=== PATIENT | male | born 2005 | race Caucasian/White ===

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

== ENCOUNTER 2024-07-19 19:03 | Emergency (ER) | payer MEDICAID, SELFPAY ==
[2024-07-19 19:04] VITALS: BP 190/115; PULSE 111; RESP 18; TEMP 36.6; O2SAT 97
--- NOTE | 2024-07-19 19:15 | RAD_ITS ---
EXAM: XR LEFT KNEE COMPLETE, 4 OR MORE VIEWS CLINICAL INDICATION: fall pain. TECHNIQUE: Four or more views of the left knee. COMPARISON: No relevant prior studies available. FINDINGS: BONES/JOINTS: Knee joint effusion. No acute fracture. No subluxation. Normal alignment. No sclerotic or destructive changes observed. SOFT TISSUES: Anterior soft tissue swelling. No radiopaque foreign body. RAD/Knee 4 or More Views IMPRESSION: 1. Anterior soft tissue swelling. 2. Knee joint effusion. No acute fracture or dislocation. Electronically Signed: Ifeanyi aZfar DO at 20:12 EST ,
--- NOTE | 2024-07-19 21:29 | EX.ED.DYSGE1 ---
HPI History of Present Illness Chief Complaint: Lower Extremity Injury Narrative Narrative: Chief complaint and HPI: Left knee pain. 18-year-old male presents for evaluation of left knee pain. Onset of left knee pain yesterday after a mechanical fall. Patient states that he tripped down steps. Did not hit his head. No LOC. States that he landed on his back and slid down the steps. Had no direct fall on his knee. Able to ambulate. Denies numbness or tingling. Denies pain elsewhere. Review of systems: See HPI Medications: As listed on the chart Allergies: As listed on the chart PFSH: Per chart Vital signs: As listed on the chart. Reviewed. Physical exam: Gen: A&O x3, NAD Head: Normocephalic, atraumatic Eyes: No sclera icterus, conjunctiva clear ENT: Moist mucous membranes Neck: Trachea midline, full range of motion CV: Regular Resp: Nonlabored respiration Musc: Full ROM of all extremities including the left lower extremity, no deformity, no instability of the left knee, no popping/clicking, no crepitus, not erythematous or warm-no signs of cellulitis, mild swelling, mildly tender to palpation diffuse, no meniscal tenderness, no ecchymosis, compartments soft, DP/PT pulse +2 Skin: Warm, dry Neuro: Alert, oriented, grossly intact, sensation intact Psych: Cooperative, appropriate mood and affect [facility] Medical History (Updated 07/19/24 @ 21:[address] Juanpablo العراقي DO) Depression ADHD Home Medications ?Medication ?Instructions ?Recorded ?Last Taken ?Type dexmethylphenidate 10 mg tablet 30 mg PO DAILY 11/04/23 Unknown History (Focalin) dexmethylphenidate 30 mg 30 mg PO 1200 11/04/23 Unknown History capsule,extended release [id number] (Focalin XR) albuterol sulfate 90 mcg/actuation 2 puff inhalation Q4H PRN PRN 07/19/24 Unknown History aerosol inhaler wheezing Allergy/AdvReac Type Severity Reaction Status Date / Time Penicillins Allergy PT UNSURE Verified 07/19/24 19:04 OF REACTION pineapple Allergy Hives Verified 07/19/24 19:04 Social History Smoking Status: Never smoker EXAM Physical Exam Const Vital Signs: 07/19/24 19:04 Temperature 97.9 F Temperature Source Temporal Pulse Rate 111 H Respiratory Rate 18 Blood Pressure 190/115 H Blood Pressure Mean 140 Pulse Ox 97 Oxygen Delivery Method Room Air MDM MDM MDM Narrative Medical decision making narrative: 18-year-old male presents for evaluation of left knee pain. Differential diagnosis includes but is not limited to left knee sprain, contusion, fracture. Protocol knee x-ray was ordered in triage. X-ray had resulted by the time I saw the patient. X-ray of the left knee was interpreted by me, ED physician as well as radiology. No fracture dislocation. Patient's symptoms are likely secondary to left knee sprain. Was educated on [id number] brace as needed for pain. Tylenol Motrin as needed for pain. Follow-up with PCP and orthopedics as needed. Return precautions explained. He confirmed understand the plan. Impression: 1. Left knee sprain 2. Mechanical fall Radiography Diagnostic Testing: Clinical Impression(s) from Imaging Studies Knee X-Ray 07/19/24 19:15 IMPRESSION: 1. Anterior soft tissue swelling. 2. Knee joint effusion. No acute fracture or dislocation. Electronically Signed: Ifeanyi Zafar DO at 20:12 EST , Discharge Plan Triage Chief Complaint: Lower Extremity Injury ED Provider: Juanpablo العراقي Dx/Rx/DC Orders Clinical Impression: Left knee sprain Instructions: ED Knee Sprain Prescriptions: No Action albuterol sulfate 90 mcg/actuation HFA aerosol inhaler 2 puff INHALATION Q4H PRN PRN (Reason: wheezing) dexmethylphenidate [Focalin] 10 mg tablet 30 mg PO DAILY Patient Comments: in the morning dexmethylphenidate [Focalin XR] 30 mg capsule,ER biphasic 50-50 30 mg PO 1200 Patient Comments: at lunch Stand Alone Forms: ED Work / School Excuse Primary Care Provider: Kim Giron Referrals: Kim Giron MD [Primary Care Provider] - 3-5 Days Gm Mcdonnell MD [Med Staff - Active Staff] - 3-5 Days Activity Restrictions/Additional Instructions: Tylenol Motrin as needed for pain. Follow-up with primary care physician and orthopedics as needed. Print Language: Serbian Disposition Disposition: Home, Self Care Discharge Date/Time: 07/19/24 21:34
== END 2024-07-19 21:34 | disposition home or self-care (01) ==
PROVIDERS: Emergency Provider Surgery; Visit Provider Surgery
DX: S83.92XA Sprain of unspecified site of left knee, initial encounter (principal); W10.9XXA Fall (on) (from) unspecified stairs and steps, initial encounter
CPT/HCPCS: 73564; 99282